=== PATIENT | female | born 1935 | race Native Hawaiian/Other Pacific Islander ===

== ENCOUNTER 2018-11-04 18:11 | Emergency (ER) | payer OTHER ==
[~2018-11-04] VITALS: Ht 157.5 cm; Wt 55.8 kg
[2018-11-04 18:11] VITALS: BP 135/91; TEMP 97.5
[2018-11-04 19:11] LABS: PLATELET COUNT 143 K/uL (152-353)
[2018-11-05] MEDS ORDERED: LIPITOR40 MG PO (01:10)
[2018-11-05] MEDS ORDERED: D3400 UNIT (01:12)
[2018-11-05] MEDS ORDERED: PANTOPRAZOLE 40MG TA PO (01:13)
[2018-11-05] MEDS ORDERED: [UNRECOGNIZED DRUG - OTHER] PO (01:17)
[2018-11-05] MEDS ORDERED: BUSPIRONE5 MG PO (01:19)
[2018-11-05] MEDS ORDERED: CARV6.25 PO (01:21)
[2018-11-05] MEDS ORDERED: DIVA250T2 PO (01:23)
[2018-11-05] MEDS ORDERED: DRONABINOL2.5 MG PO (01:25)
[2018-11-05] MEDS ORDERED: METF500T PO (01:29)
[2018-11-05] MEDS ORDERED: TRAMADOL HYDROC50 MG PO (01:32)
[2018-11-05] MEDS ORDERED: COLESTID1 GM PO (01:45)
== END 2018-11-04 21:50 | disposition other institution (70) ==
LOC: ED 18:11
PROVIDERS: Emergency Medicine
DX: F03.91 Unspecified dementia, unspecified severity, with behavioral disturbance (principal); I45.81 Long QT syndrome; N39.0 Urinary tract infection, site not specified; Z04.6 Encounter for general psychiatric examination, requested by authority
CPT/HCPCS: 80053; 81000; 85027; 87077; 87086; 87088; 87186; 93005; 99285

== ENCOUNTER 2018-11-12 17:30 | Inpatient (IN) | payer OTHER ==
[~2018-11-12] VITALS: Ht 170.2 cm; Wt 51.9 kg
[~2018-11-12 17:30] MED LIST: BUSPIRONE5 MG PO; CARV6.25 PO; COLESTID1 GM PO; D3400 UNIT; DIVA250T2 PO; DRONABINOL2.5 MG PO; LIPITOR40 MG PO; METF500T PO; PANTOPRAZOLE 40MG TA PO; TRAMADOL HYDROC50 MG PO; [UNRECOGNIZED DRUG - OTHER] PO
[2018-11-12 18:46] LABS: PLATELET COUNT 173 K/uL (152-353)
[2018-11-12 19:00] VITALS: BP 122/57
[2018-11-12 20:11] VITALS: BP 140/77; TEMP 98.6; Ht 170.2 cm; Wt 51.9 kg
[2018-11-12 21:00] VITALS: BP 109/37
[2018-11-12 22:00] VITALS: BP 123/52
[2018-11-12 23:00] VITALS: BP 132/75; TEMP 98.7
[2018-11-13] VITALS (25 sets, daily range): BP systolic 91–145; BP diastolic 35–87; TEMP 98.3–99.1
[2018-11-13] MEDS ORDERED: APIX1TAB PO (04:09)
[2018-11-13 04:56] LABS: PLATELET COUNT 153 K/uL (152-353)
[2018-11-13 08:06] LABS: POTASSIUM 3.5 mmol/L (3.6-5.2)
[2018-11-14] VITALS (18 sets, daily range): BP systolic 123–146; BP diastolic 59–94; TEMP 98.1–98.8
[2018-11-14 05:32] LABS: PLATELET COUNT 149 K/uL (152-353)
[2018-11-14 05:44] LABS: POTASSIUM 3.3 mmol/L (3.6-5.2)
[2018-11-15] VITALS (15 sets, daily range): BP systolic 126–166; BP diastolic 53–92; TEMP 97.4–98.7
[2018-11-15 05:14] LABS: PLATELET COUNT 162 K/uL (152-353)
[2018-11-15 05:30] LABS: POTASSIUM 3.6 mmol/L (3.6-5.2)
== END 2018-11-15 19:45 | disposition home health service (06) | DRG 177 ==
LOC: ICU 17:30
PROVIDERS: ADMIT Internal Medicine
DX: J15.212 Pneumonia due to Methicillin resistant Staphylococcus aureus (principal); J96.00 Acute respiratory failure, unspecified whether with hypoxia or hypercapnia; J44.0 Chronic obstructive pulmonary disease with (acute) lower respiratory infection; I10 Essential (primary) hypertension; E11.9 Type 2 diabetes mellitus without complications; K21.9 Gastro-esophageal reflux disease without esophagitis; G30.8 Other Alzheimer's disease; F02.80 Dementia in other diseases classified elsewhere, unspecified severity, without behavioral disturbance, psychotic disturbance, mood disturbance, and anxiety
CPT/HCPCS: 36415; 80048; 80053; 81000; 85027; 87070; 87077; 87185; 87186; 87205; 94640; 94664; 94668; 94760; J0132; J1650; J2060; J2543; J3490